=== PATIENT | female | born 1975 | race Caucasian/White ===

== ENCOUNTER 2016-06-29 18:34 | Emergency (ER) | payer SELFPAY ==
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
[~2016-06-29 18:34] MED LIST: FLEXERIL10 MG PO; LORTAB 5/500 TA1 TA1 PO; MULTIVITAMINS1 EAC3; NAPROSYN500 MG PO; NO MEDICATIONS
[2016-06-29] MEDS ORDERED: FLEXERIL10 MG PO (19:47)
== END 2016-06-29 19:47 | disposition home or self-care (01) ==
LOC: SED 18:34
DX: S13.4XXA Sprain of ligaments of cervical spine, initial encounter (principal); F17.200 Nicotine dependence, unspecified, uncomplicated; Z88.0 Allergy status to penicillin; Z88.2 Allergy status to sulfonamides; Z79.899 Other long term (current) drug therapy; V89.2XXA Person injured in unspecified motor-vehicle accident, traffic, initial encounter; Y92.9 Unspecified place or not applicable
CPT/HCPCS: 70450; 72125; 99284